=== PATIENT | female | born 1995 | race Caucasian/White ===

== ENCOUNTER 2016-12-21 15:21 | Emergency (ER) | payer OTHER ==
[~2016-12-21] VITALS: Ht 157.5 cm; Wt 45.4 kg
[~2016-12-21 15:21] MED LIST: CIPRO250 M1 PO; GOOD SENSE PAI650 MG PO; MACROBID100 MG PO; ZOFRAN4 M1 SL
[2016-12-21 15:30] VITALS: BP 123/76
[2016-12-21] MEDS ORDERED: CIPRODEX OTIC7.5 ML OT (16:24)
--- NOTE | 2016-12-21 16:25 | ED EAR COMPLAINT ---
History of Present Illness General Chief Complaint: Ear Complaints Stated Complaint: C/O R EAR PAIN Source: patient Exam Limitations: no limitations Vital Signs & Intake/Output Vital Signs & Intake/Output Vital Signs Date Time Temp Pulse Resp B/P B/P Pulse O2 O2 Flow FiO2 Mean Ox Delivery Rate 12/21 1530 98.9 97 16 123/76 95 Room Air Allergies Coded Allergies: ibuprofen (Intermediate, DUE TO HORSE SHOE KIDNEY 06/04/16) Reconcile Medications Ciprofloxacin HCl (Cipro) 250 MG TABLET 1 TAB PO BID uti Ciprofloxacin HCl/Dexameth (Ciprodex Otic Suspension) 0.3 %-0.1 % DROPS.SUSP 4 GTT OT BID ear infection Triage Note: TRIAGE: R EAR PAIN X2-3 DAYS, UNRELIEVED BY TYLENOL LAST TAKEN THIS AM 0900. AFEBRILE IN TRIAGE. Triage Nurses Notes Reviewed? yes Onset: Abrupt Duration: day(s):, constant, continues in ED Timing: recent history Severity: mild, moderate No Modifying Factors: none : No Patient currently breastfeeds: Yes HPI: 21-year-old female comes into emergency room with complaints of right ear pain. Pain is been going on for the past couple days. Sharp. Throbbing. Nonradiating. Denies any sore throat. Denies any cough or congestion. Patient was sick with some upper store symptoms last week but those symptoms have since resolved. Past History Travel History Traveled to [place] past 21 day No Medical History Any Pertinent Medical History? see below for history Neurological: NONE EENT: NONE Cardiovascular: NONE Respiratory: NONE Gastrointestinal: NONE Hepatic: NONE Renal: HORSESHOE KIDNEY Musculoskeletal: NONE Psychiatric: anxiety, depression Endocrine: NONE Blood Disorders: NONE Cancer(s): NONE Surgical History Surgical History: N Psychosocial History What is your primary language Wallisian Tobacco Use: Current Not Daily Family History Hx Contributory? No Review of Systems Review of Systems Constitutional: Reports: no symptoms. EENTM: Reports: see HPI. Respiratory: Reports: no symptoms. Cardiovascular: Reports: no symptoms. GI: Reports: no symptoms. Genitourinary: Reports: no symptoms. Musculoskeletal: Reports: no symptoms. Skin: Reports: no symptoms. Neurological/Psychological: Reports: no symptoms. Hematologic/Endocrine: Reports: no symptoms. Immunologic/Allergic: Reports: no symptoms. All Other Systems: Reviewed and Negative Physical Exam Physical Exam General Appearance: well developed/nourished, mild distress Head: atraumatic Eyes: Bilateral: normal appearance. Ears: Right: canal normal (erythema, inflamed). Nose: normal inspection Mouth/Throat: normal mouth inspection, pharynx normal Neck: normal inspection Cardiovascular/Respiratory: no respiratory distress Back: normal inspection Neurologic/Psych: awake, alert, oriented x 3, normal mood/affect Skin: intact, normal color, warm/dry Progress Differential Diagnoses I considered the following diagnoses in my evaluation of the patient: Otitis media, otitis externa, perforated TM, foreign body, Plan of Care: 12/21/2016 5:02:25 PM Patient clinically looks well. Nontoxic-appearing. In no apparent distress. Initial ED EKG: none Departure Departure Disposition: HOME OR SELF CARE Condition: Stable Clinical Impression Primary Impression: Otitis externa Referrals: UNKNOWN (PCP/Family) Additional Instructions: Uses Ciprodex drops as prescribed. Follow-up with your primary care doctor. Return if any concerns worsening symptoms. Please go over all results of today's visit with your primary care doctor. Contact your primary care doctor to let them know you were here in the emergency room. There may be nonspecific findings which may not be related to your visit today here in the emergency room but may require further evaluation and chronic monitoring by your primary care doctor. If you had a laceration today the chance of foreign body always remains. You should follow-up with your primary care doctor for recheck in 3-5 days for a wound check. If you had an x-ray done there is a chance that a fracture could have been missed on initial read and you should follow-up with your primary care doctor for repeat x-rays if symptoms persist. If your blood pressure was elevated here in the emergency room please have rechecked by her primary care doctor within the next 48 hours by your primary care doctor. If you were prescribed a narcotic here in the emergency room or any type of controlled substances you're not allowed to drive while taking this medication or operate any type of heavy machinery. Narcotics can make you feel lightheaded dizziness nausea and can cause constipation. You may need to pickle pumper a stool softener. Thank you for choosing emergency room. Please return to the emergency room immediately if you have any other concerns worsening of symptoms. Departure Forms: Customer Survey General Discharge Information Prescriptions: Current Visit Scripts Ciprofloxacin HCl/Dexameth (Ciprodex Otic Suspension) 4 GTT OT BID #1 BOT
== END 2016-12-21 16:45 ==
LOC: ERH 15:21
DX: H60.91 Unspecified otitis externa, right ear (principal)

== ENCOUNTER 2017-02-17 10:49 | Emergency (ER) | payer OTHER ==
[~2017-02-17] VITALS: Ht 157.5 cm; Wt 56.7 kg
[~2017-02-17 10:49] MED LIST changes: +CIPRODEX OTIC7.5 ML OT
--- NOTE | 2017-02-17 11:16 | ED GI/GU/ABDOMINAL COMPLAINT ---
History of Present Illness General Chief Complaint: Female Urogenital Problems Stated Complaint: 12 WEEKS , BLEEDING X 2DAYS Source: patient Exam Limitations: no limitations Vital Signs & Intake/Output Vital Signs & Intake/Output Vital Signs Date Time Temp Pulse Resp B/P B/P Pulse O2 O2 Flow FiO2 Mean Ox Delivery Rate 02/17 1244 76 20 110/60 98 Room Air 02/17 1055 98.6 91 18 126/85 98 Room Air Allergies Coded Allergies: ibuprofen (Intermediate, DUE TO HORSE SHOE KIDNEY 06/04/16) Reconcile Medications Ondansetron HCl (Zofran) 4 MG TABLET 1 TAB PO Q6-8P PRN NAUSEA Tylenol With Codeine (Tylenol With Codeine #3 Tablet) 300 MG-30 MG TABLET 1 TAB PO BIDP PRN PAIN Triage Note: 21 YO FEMALE TO ER. PT STAETS SHE WAS 12 WEEKS AND WENT FOR A ROUTINE ULTRASOUND ON SATURDAY AND THEY FOUND NO HEARTBEAT, STATES WAS SENT BACK FOR REPEAT ULTRSOUND ON SATURDAY AND STILL NO HEARTBEAT. PT STATES SHE IS PASSING CLOTS AND HAVING LOWER ABD PAIN. STATES "FEELS LIKE MY BACK IS KATHY" OB DR MOTA Triage Nurses Notes Reviewed? yes ? Y Is pt currently ? No Onset: Abrupt Duration: constant Quality/Severity: cramping, severe Severity Numbers: 7 HPI: Patient is a 21-year-old female who is a approximately 13 weeks and which patient's [employer] is Mikey Mota MD where patient states that she had a routine follow-up appointment on Saturday with Mikey Mota MD where she has had previous confirmed IUP ultrasounds where she states that she received a ultrasound where patient was asymptomatic however Mikey Mota MD notified patient following day on for concerns of no heart tones noted where she instructed the patient that she will most likely have a miscarriage and passing of vaginal tissue and blood. Patient states that yesterday she began mild vaginal bleeding and suprapubic abdominal cramping pain with mild back pain however the bleeding has worsened her patient now is passing multiple clots in the pain was so severe the patient was brought in by ambulance. Patient has mild nausea however no emesis has occurred. Patient can tolerate by mouth (LULU CARROLL,CLOTILDE) Past History Travel History Traveled to [place] past 21 day No Medical History Any Pertinent Medical History? see below for history Neurological: NONE EENT: NONE Cardiovascular: NONE Respiratory: NONE Gastrointestinal: NONE Hepatic: NONE Renal: HORSESHOE KIDNEY Musculoskeletal: NONE Psychiatric: anxiety, depression Endocrine: NONE Blood Disorders: NONE Cancer(s): NONE CLINICAL OB/Reproductive: ECTOPIC Surgical History Surgical History: none, N Psychosocial History What is your primary language Hungarian Tobacco Use: Current Daily Use Daily Tobacco Use Amount/Type: =< 4 Cigarettes daily Family History Hx Contributory? No (CLOTILDE BAXTER) Review of Systems Review of Systems Constitutional: Reports: no symptoms. EENTM: Reports: no symptoms. Respiratory: Reports: no symptoms. Cardiovascular: Reports: no symptoms. GI: Reports: see HPI, abdominal pain. Genitourinary: Reports: see HPI. Musculoskeletal: Reports: see HPI, back pain. Skin: Reports: no symptoms. Neurological/Psychological: Reports: no symptoms. Hematologic/Endocrine: Reports: no symptoms. Immunologic/Allergic: Reports: no symptoms. All Other Systems: Reviewed and Negative (CLOTILDE BAXTER) Physical Exam Physical Exam General Appearance: anxious, mild distress Gastrointestinal: normal bowel sounds, soft Comments: HEENT: Normal EENT exam, Neck: Supple, no lymphadenopathy, normal range of motion without pain or tenderness Back: Normal inspection, bilateral paralumbar muscular point tenderness Cardiovascular: Regular rate and rhythms no murmurs rubs or gallops, normal JVP Respiratory: Chest nontender. No respiratory distress.breath sounds clear to auscultation bilaterally Abdomen: Soft, mild suprapubic point tenderness: Alert oriented x3, motor sensory normal, - mild active vaginal bleeding noted cervix nontender and 1 cm dilation noted Skin: No appreciable rash on exposed skin, skin is warm and dry. Psych: Mood and affect is normal, memory and judgment is normal. Core Measures ACS in differential dx? No Severe Sepsis Present: No Septic Shock Present: No (CLOTILDE BAXTER) Progress Differential Diagnosis: appendicitis, biliary colic, cholecystitis, diverticulitis, endometritis, esophageal varices, gastritis, hepatitis, hernia, hemorrhoids, ischemic bowel, inflamm bowel dis, intrauterine , kidney stone, ovarian cyst, ovarian torsion, pancreatitis, PID/cervicitis, peptic ulcer , PUD/GERD, perforated viscous, SBO, threatened AB, UTI/pyelo Plan of Care: Orders Procedure Date/time Status URINALYSIS 02/17 111 Active PARTIAL THROMBOPLASTIN TIME 02/17 111 Complete PROTHROMBIN TIME 02/17 111 Complete HUMAN BETA HCG TITRE 02/17 1110 Complete COMPREHENSIVE METABOLIC PANEL 02/17 111 Complete CBC WITHOUT DIFFERENTIAL 02/17 1110 Complete TYPE & SCREEN (NOT X-MATCH) 02/17 111 Complete Laboratory Tests 02/17/17 1120: Anion Gap 12, Estimated GFR > 60, BUN/Creatinine Ratio 6.3 L, Glucose 80, Calcium 10.0, Total Bilirubin 0.7, AST 17, ALT 20, Alkaline Phosphatase 62, Total Protein 7.4, Albumin 4.7, Globulin 2.7, Albumin/Globulin Ratio 1.7, Beta HCG, Quant 1921.1, PT 12.5, INR 1.19, APTT 32, CBC w Diff NO MAN DIFF REQ, RBC 4.60, MCV 91.0, MCH 30.0, RDW 16.7 H, MPV 7.8, Gran % 73.2, Lymphocytes % 17.4 L, Monocytes % 7.2, Eosinophils % 1.9, Basophils % 0.3, Absolute Granulocytes 8.5 H, Absolute Lymphocytes 2.0, Absolute Monocytes 0.8 H, Absolute Eosinophils 0.2, Absolute Basophils 0, PUBS MCHC 32.9 L Patient was hemodynamically stable normotensive Discussed ultrasound results with patient for concerns of miscarriage. I discussed patient ultrasound findings blood work with [employer] Mikey Mota MD who advised patient to follow-up first thing tomorrow morning for further evaluation treatment. Ultrasound findings were suspicious that patient has most likely completed her miscarriage in which no significant retained products was noted patient had dried blood around the labia with no profuse active bleeding upon discharge Upon discharge patient looks well no apparent distress was able tolerate by mouth Discussed disposition plan with DR. PINO WHO AGREES patient had no questions on discharge (LULU CARROLL,CLOTILDE) Diagnostic Imaging: Viewed by Me: Ultrasound. Radiology Impression: SEE COMMENTS Initial ED EKG: none Comments: PATIENT: SOCO MELCHOR PRESENT AGE: 21 PATIENT ACCOUNT NO: [id number] : 96 LOCATION: [facility] ORDERING PHYSICIAN: CLOTILDE CARRLOL SERVICE DATE: 02/17/17-1109 EXAM TYPE: US - US- VIABILITY EXAMINATION: US , VIABILITY CLINICAL INFORMATION: Approximately 12 weeks . Heavy bleeding. History of recent miscarriage. COMPARISON: None TECHNIQUE: Transabdominal and transvaginal OB ultrasound. Transvaginal exam was stopped as the patient could not tolerate the exam. FINDINGS: The uterus measures 11 x 5.5 x 5.4 cm in dimension. No intrauterine is seen. The endometrium is thickened measure between 1.3 and 1.9 cm. Cervical length is 3.4 cm. The ovaries are not seen. There is no fluid in the pelvis. IMPRESSION: Limited exam. No intrauterine seen. Thickened endometrium. Ovaries not seen. DICTATED BY: JEFFERY LUCIANO MD DATE/TIME DICTATED:02/17/171154 OUTSIDE PROPERTY AGENT:HENRIETTA (CLOTILDE BAXTER) Departure Departure Disposition: HOME OR SELF CARE Condition: Stable Clinical Impression Primary Impression: Incomplete miscarriage Referrals: PATIENT HAS NO PRIMARY CARE DR (PCP/Family) Additional Instructions: As discussed begin the prescription of Tylenol with Codeine for pain. Begin the prescription of Zofran for nausea. First thing tomorrow follow up with YOUR established [employer] Mikey Mota MD If symptoms worsen return to emergency room. Prescriptions are waiting at [facility] Departure Forms: Customer Survey General Discharge Information Prescriptions: Current Visit Scripts Tylenol With Codeine (Tylenol With Codeine #3 Tablet) 1 TAB PO BIDP PRN PAIN #8 TAB Ondansetron HCl (Zofran) 1 TAB PO Q6-8P PRN NAUSEA #8 TAB (CLOTILDE BAXTER) PA/IN HOME AIDE Co-Sign Statement Statement: ED Attending supervision documentation- [X] I saw and evaluated the patient. I have also reviewed all the pertinent lab results and diagnostic results. I agree with the findings and the plan of care as documented in the PA's/IN HOME AIDE's documentation. [] I have reviewed the ED Record and agree with the PA's/IN HOME AIDE's documentation. [] Additions or exceptions (if any) to the PAs/IN HOME AIDE's note and plan are summarized below: [] (CLYDE PINO DO)
[2017-02-17 11:39] LABS: ABSOLUTE BASOPHIL COUNT 0 /CUMM (0.0-0.2); ABSOLUTE EOSINOPHIL COUNT 0.2 /CUMM (0.0-0.7); ABSOLUTE GRANULOCYTE CT 8.5 /CUMM (1.4-6.5); ABSOLUTE MONOCYTE COUNT 0.8 /CUMM (0.10-0.60); BASOPHIL % 0.3 % (0.0-2.0); EOSINOPHIL % 1.9 % (0-5); GRANULOCYTE % 73.2 % (42.2-75.2); HEMATOCRIT 41.9 % (37-47); MEAN CORPUSCULAR HGB CONC 32.9 G/DL (33.0-37.0); MEAN PLATELET VOLUME 7.8 FL (7.4-10.4); PLATELET COUNT 336 /CUMM (130-400); RBC DISTRIBUTION WIDTH 16.7 % (11.5-14.5); WHITE BLOOD CELL COUNT 11.6 /CUMM (4.8-10.8)
[2017-02-17 11:49] LABS: PT 12.5 SEC (9.4-12.5); PTT 32 SEC (25-37)
--- NOTE | 2017-02-17 12:07 | ULTRASOUND REPORT ---
EXAMINATION: US , VIABILITY CLINICAL INFORMATION: Approximately 12 weeks . Heavy bleeding. History of recent miscarriage. COMPARISON: None TECHNIQUE: Transabdominal and transvaginal OB ultrasound. Transvaginal exam was stopped as the patient could not tolerate the exam. FINDINGS: The uterus measures 11 x 5.5 x 5.4 cm in dimension. No intrauterine is seen. The endometrium is thickened measure between 1.3 and 1.9 cm. Cervical length is 3.4 cm. The ovaries are not seen. There is no fluid in the pelvis. IMPRESSION: Limited exam. No intrauterine seen. Thickened endometrium. Ovaries not seen.
[2017-02-17] MEDS ORDERED: ZOFRAN4 M2 PO (12:30)
[2017-02-17] MEDS ORDERED: TYLENOL WITH C1 EACH PO (12:30)
[2017-02-17 12:44] VITALS: BP 110/60
== END 2017-02-17 12:48 ==
LOC: ERH 10:49
PROVIDERS: Physician Assistant
DX: O02.1 Missed abortion (principal)
CPT/HCPCS: J3101

== ENCOUNTER 2017-12-18 21:29 | Emergency (ER) | payer OTHER ==
[~2017-12-18] VITALS: Ht 157.5 cm; Wt 46.3 kg
[~2017-12-18 21:29] MED LIST changes: +TYLENOL WITH C1 EACH PO; +ZOFRAN4 M2 PO
--- NOTE | 2017-12-18 21:55 | ED GI/GU/ABDOMINAL COMPLAINT ---
History of Present Illness General Chief Complaint: Female Urogenital Problems Stated Complaint: ?OVARIAN CYSTS Source: patient Exam Limitations: no limitations Vital Signs & Intake/Output Vital Signs & Intake/Output Vital Signs Date Time Temp Pulse Resp B/P B/P Pulse O2 O2 Flow FiO2 Mean Ox Delivery Rate 12/18 2133 98.0 79 16 131/87 98 Room Air Room Air ED Intake and Output 12/19 0000 12/18 1200 Intake Total 1000 Output Total 300 Balance 700 Intake, IV 1000 Output, Urine 300 Patient 102 lb Weight Weight Estimated Measurement Method Allergies Coded Allergies: NSAIDS (Non-Steroidal Anti-Inflamma ("HORSE SHOE KIDNEY" 12/18/17) Reconcile Medications Ciprofloxacin HCl (Cipro) 500 MG TABLET 1 TAB PO BID pyelo Ondansetron HCl (Zofran) 4 MG TABLET 1 TAB PO Q6-8P PRN NAUSEA Oxycodone HCl/Acetaminophen (Percocet 5-325 MG Tablet) 5 MG-325 MG TABLET 1 TAB PO BID PRN pain Tylenol With Codeine (Tylenol With Codeine #3 Tablet) 300 MG-30 MG TABLET 1 TAB PO BIDP PRN PAIN Triage Note: PT TO TRIAGE FOR LLQ PAIN FOR 2 DAYS. PT SAW HER OBGYN FOR PAP SMEAR AND WAS CALLED BACK STATING SHE EITHER HAD CERVICA CA OR OVARIAN CYSTS. SOON AFTER BEING NOTIFIED SHE HAD PAIN. DENIES FEVERS, DENIES VAGINAL BLEEDING. HX OF ECTOPIC, DENIES CURRENT Triage Nurses Notes Reviewed? yes ? N Is pt currently ? No Onset: Gradual Duration: day(s): Timing: recent history Quality/Severity: moderate Severity Numbers: 8 Location: left lower quadrant HPI: 22YO female presents to ED complaining of left lower quadrant abdominal pain for the past 2 days. Abdominal pain described as sharp, 8/10, radiating to generalized abdomen. Patient also reports dysuria beginning today. Patient states that she has a history of previous UTI within the past month and history of pyelonephritis in the past as well. The patient recently saw her TELEGRAPH INSPECTOR and had a Pap smear which was concerning for possible "cancer or ovarian cysts". She is still under work up with her TELEGRAPH INSPECTOR for this. Patient denies fevers, chills, changes in vaginal discharge, vomiting, diarrhea, constipation. (Sandra CARROLL,Bri Santillan) Past History Travel History Traveled to [place] past 21 day No Medical History Any Pertinent Medical History? see below for history Neurological: NONE EENT: NONE Cardiovascular: NONE Respiratory: NONE Gastrointestinal: NONE Hepatic: NONE Renal: HORSESHOE KIDNEY Musculoskeletal: NONE Psychiatric: anxiety, depression Endocrine: NONE Blood Disorders: NONE Cancer(s): NONE DIALYSIS TECHNICIAN/Reproductive: ECTOPIC Surgical History Surgical History: none, N Psychosocial History What is your primary language Iranian Tobacco Use: Current Daily Use Daily Tobacco Use Amount/Type: => 5 Cigarettes daily ETOH Use: occasional use Illicit Drug Use: denies illicit drug use Family History Hx Contributory? No (Bri De La Cruz) Review of Systems Review of Systems Constitutional: Reports: no symptoms. EENTM: Reports: no symptoms. Respiratory: Reports: no symptoms. Cardiovascular: Reports: no symptoms. GI: Reports: see HPI. Genitourinary: Reports: see HPI. Musculoskeletal: Reports: no symptoms. Skin: Reports: no symptoms. Neurological/Psychological: Reports: no symptoms. Hematologic/Endocrine: Reports: no symptoms. Immunologic/Allergic: Reports: no symptoms. All Other Systems: Reviewed and Negative (Bri De La Cruz) Physical Exam Physical Exam General Appearance: well developed/nourished, no apparent distress, alert, awake Head: atraumatic, normal appearance Eyes: Bilateral: normal appearance. Ears, Nose, Throat, Mouth: hearing grossly normal Neck: normal inspection, supple, full range of motion Respiratory: normal breath sounds, no respiratory distress, lungs clear Cardiovascular: regular rate/rhythm Gastrointestinal: normal bowel sounds, soft, no organomegaly, LLQ tenderness, - Rosving's sign Back: normal inspection, normal range of motion, no CVA tenderness Extremities: normal range of motion Neurologic/Psych: awake, alert, oriented x 3 Skin: intact, normal color, warm/dry Core Measures ACS in differential dx? No Sepsis Present: No Sepsis Focused Exam Completed? No (Bri De La Cruz) Progress Differential Diagnosis: appendicitis, bowel obstruction, colon cancer, diverticulitis, ectopic , hernia, inflamm bowel dis, intrauterine , kidney stone, ovarian cyst, SBO, UTI/pyelo Plan of Care: Orders Procedure Date/time Status Add-on Test (ER Only) 12/19 0024 Active CULTURE,URINE 12/18 2214 Active URINE 12/18 2153 Complete URINALYSIS 12/18 2153 Complete LIPASE 12/18 2153 Complete COMPREHENSIVE METABOLIC PANEL 12/18 2153 Complete CBC WITHOUT DIFFERENTIAL 12/18 2153 Complete Current Medications Sig/Nohelia Start time Last Medication Dose Stop Time Status Admin Ceftriaxone Sodium 1,000 MG ONCE ONE 12/19 29 UNVr 12/19 (Rocephin) 12/19 30 0035 Laboratory Tests 12/18/172214: Urine Color YEL, Urine Clarity HAZY H, Urine pH 6.5, Ur Specific [place] 1.010, Urine Protein NEG, Urine Ketones NEG, Urine Nitrite NEG, Urine Bilirubin NEG, Urine Urobilinogen 0.2, Ur Leukocyte Esterase MOD H, Ur Microscopic SEDIMENT EXAMINED, Urine RBC RARE, Urine WBC 25-50 H, Ur Epithelial Cells MOD H, Urine Bacteria MOD H, Urine Mucus RARE, Urine Hemoglobin TRACE-INTACT, Urine Glucose NEG, Urine Test NEGATIVE 12/18/172204: Anion Gap 10, Estimated GFR > 60, BUN/Creatinine Ratio 13.8, Glucose 85, Calcium 9.1, Total Bilirubin 0.4, AST 15, ALT 18, Alkaline Phosphatase 67, Total Protein 6.4, Albumin 3.8, Globulin 2.6, Albumin/Globulin Ratio 1.5, Lipase 83, CBC w Diff NO MAN DIFF REQ, RBC 4.37, MCV 90.8, MCH 30.6, MCHC 33.7, RDW 15.0 H, MPV 8.1, Gran % 76.5 H, Lymphocytes % 16.9 L, Monocytes % 6.3, Eosinophils % 0, Basophils % 0.3, Absolute Granulocytes 13.1 H, Absolute Lymphocytes 2.9, Absolute Monocytes 1.1 H, Absolute Eosinophils 0, Absolute Basophils 0.1 Microbiology 12/18 2214 URINE ROUT: Urine Culture - RECD Patient's CT scan findings combined with her blood work and urinalysis show signs of likely pyelonephritis. She didn't has evidence of infection on her urine as well as leukocytosis. Patient reports improvement in pain following IV pain medication. Patient was given a dose of IV antibiotics here in the emergency department. She was started on Cipro antibiotics for urinary infection. Patient was given strict return precautions, she does feel comfortable going home. The patient is nontoxic appearing, vital signs are stable. She will return if symptoms are worsening. Patient understands and agrees with the plan of care. The patient was discussed with Dr. Vargas who agrees with the plan of care. Diagnostic Imaging: Viewed by Me: CT Scan. Discussed w/RAD: CT Scan. Radiology Impression: PATIENT: SOCO MELCHOR PRESENT AGE: 22 PATIENT ACCOUNT NO: [id number] : 96 LOCATION: [facility] ORDERING PHYSICIAN: Bri CARROLL SERVICE DATE: 12/18/17 EXAM TYPE: CAT - CT ABD & PELVIS W IV CONTRAST EXAMINATION: CT ABDOMEN AND PELVIS WITH CONTRAST CLINICAL INFORMATION: Generalized abdominal pain, diarrhea COMPARISON: 02/28/2015 TECHNIQUE: Multidetector volumetric imaging was performed of the abdomen and pelvis following IV administration of 95 mL of Optiray 320 intravenous contrast. Sagittal and coronal reformatted images were obtained on the technologist's workstation. DLP: 247.97 mGy-cm FINDINGS: LUNG BASES: The visualized lung bases are unremarkable. LIVER, GALLBLADDER, AND BILIARY TREE: The liver is normal in size, shape, and attenuation. Periportal edema is noted, which may reflect systemic hypervolemia, as there is also distention of the IVC. No focal hepatic lesion or biliary ductal dilatation is present. The gallbladder is grossly unremarkable. PANCREAS: Unremarkable. SPLEEN: Unremarkable. ADRENAL GLANDS: Unremarkable. KIDNEYS AND URETERS: Redemonstrated horseshoe kidney configuration with a larger right kidney and smaller left kidney. No definite parenchymal evidence for pyelonephritis, though the configuration of the kidney partially limits evaluation. No appreciable perinephric stranding. There is mild asymmetric fullness of the right renal pelvis. There is also mural enhancement of the right renal pelvis and ureter, which may reflect sequelae of inflammation. No obstructing calculi seen bilaterally. BLADDER: Unremarkable. GASTROINTESTINAL TRACT: The small and large bowel are unremarkable without evidence for obstruction or wall thickening. The appendix appears nondilated. ABDOMINAL WALL: No significant hernia is appreciated. LYMPH NODES: No appreciable lymphadenopathy. VASCULAR: Unremarkable. PELVIC VISCERA: Unremarkable. OSSEOUS STRUCTURES: Unremarkable. IMPRESSION: 1. Mild asymmetric fullness of the right renal pelvis, with mural enhancement of the pelvis and ureter, which could reflect sequelae of infection. Correlation with urinalysis is advised. Horseshoe kidney configuration without definite evidence of pyelonephritis. 2. Periportal edema in the liver, which may be due to systemic hypervolemia. In the proper clinical setting, acute hepatitis could also result in this appearance. 3. No acute bowel abnormality. DICTATED BY: Oscar Rivera MD DATE/TIME DICTATED:12/18/172324 MEDICAL REVIEWER:HENRIETTA DATE/TIME TRANSCRIBED:12/18/172324 CONFIDENTIAL, DO NOT COPY WITHOUT APPROPRIATE AUTHORIZATION. <Electronically signed in Other Vendor System> SIGNED BY: Oscar Rivera MD 12/18/17 9952 Initial ED EKG: none (Bri De La Cruz) Departure Departure Disposition: HOME OR SELF CARE Condition: Stable Clinical Impression Primary Impression: Pyelonephritis Referrals: Patient Has No Primary Care Dr Additional Instructions: Take full course of antibiotics. Take Percocet as prescribed as needed for pain. Return with any worsening symptoms or concerns such as increasing pain, fevers despite use of Tylenol. Please note that there might be incidental findings in your evaluation that are unrelated to the current emergency department visit. Please notify your primary care doctor about this emergency department visit in order to obtain and review all of the testing performed so that these incidental findings can be monitored as needed. If you had an x-ray performed, please understand that some fractures may not be seen on the initial set of x-rays. If your symptoms persist you might need a repeat set of x-rays to check for such a fracture. If you had a laceration evaluated, please understand that foreign bodies such as glass or wood may not be visible to the naked eye or on plain x-rays. If the wound becomes red, swollen, increasingly more painful or if there is any drainage from the wound, please have it reevaluated by a physician for the possibility of a retained foreign body. If you're unable to follow up as outlined in the discharge instructions please return to the emergency department. Thank you for choosing the [facility] for your care. It was a pleasure to serve you today. Departure Forms: Customer Survey General Discharge Information Prescriptions: Current Visit Scripts Ciprofloxacin HCl (Cipro) 1 TAB PO BID #20 TAB Oxycodone HCl/Acetaminophen (Percocet 5-325 MG Tablet) 1 TAB PO BID PRN pain #10 TAB (Bri De La Cruz) PA/AUTOMOBILE MECHANIC APPRENTICE Co-Sign Statement Statement: ED Attending supervision documentation- [] I saw and evaluated the patient. I have also reviewed all the pertinent lab results and diagnostic results. I agree with the findings and the plan of care as documented in the PA's/AUTOMOBILE MECHANIC APPRENTICE's documentation. [x] I have reviewed the ED Record and agree with the PA's/AUTOMOBILE MECHANIC APPRENTICE's documentation. [] Additions or exceptions (if any) to the PAs/AUTOMOBILE MECHANIC APPRENTICE's note and plan are summarized below: [] (Archie Saavedra DO) PA/AUTOMOBILE MECHANIC APPRENTICE Co-Sign Statement Statement: ED Attending supervision documentation- X I saw and evaluated the patient. I have also reviewed all the pertinent lab results and diagnostic results. I agree with the findings and the plan of care as documented in the PA's/AUTOMOBILE MECHANIC APPRENTICE's documentation. [] I have reviewed the ED Record and agree with the PA's/AUTOMOBILE MECHANIC APPRENTICE's documentation. [] Additions or exceptions (if any) to the PAs/AUTOMOBILE MECHANIC APPRENTICE's note and plan are summarized below: [] (Alicia WALTERS,Ramiro)
[2017-12-18 22:37] LABS: ABSOLUTE BASOPHIL COUNT 0.1 /CUMM (0.0-0.2); ABSOLUTE EOSINOPHIL COUNT 0 /CUMM (0.0-0.7); ABSOLUTE GRANULOCYTE CT 13.1 /CUMM (1.4-6.5); ABSOLUTE LYMPH COUNT 2.9 /CUMM (1.2-3.4); ABSOLUTE MONOCYTE COUNT 1.1 /CUMM (0.10-0.60); BASOPHIL % 0.3 % (0.0-2.0); EOSINOPHIL % 0 % (0-5); GRANULOCYTE % 76.5 % (42.2-75.2); HEMATOCRIT 39.7 % (37-47); MEAN CORPUSCULAR HGB 30.6 PG (27.0-31.0); MEAN CORPUSCULAR HGB CONC 33.7 G/DL (33.0-37.0); MEAN CORPUSCULAR VOLUME 90.8 FL (81.0-99.0); MEAN PLATELET VOLUME 8.1 FL (7.4-10.4); PLATELET COUNT 414 /CUMM (130-400); RED BLOOD CELL CT 4.37 /CUMM (4.20-5.40)
[2017-12-18 22:54] LABS: WHITE BLOOD CELL COUNT 17.1 /CUMM (4.8-10.8)
--- NOTE | 2017-12-18 23:44 | CT SCAN REPORT ---
EXAMINATION: CT ABDOMEN AND PELVIS WITH CONTRAST CLINICAL INFORMATION: Generalized abdominal pain, diarrhea COMPARISON: 02/28/2015 TECHNIQUE: Multidetector volumetric imaging was performed of the abdomen and pelvis following IV administration of 95 mL of Optiray 320 intravenous contrast. Sagittal and coronal reformatted images were obtained on the technologist's workstation. DLP: 247.97 mGy-cm FINDINGS: LUNG BASES: The visualized lung bases are unremarkable. LIVER, GALLBLADDER, AND BILIARY TREE: The liver is normal in size, shape, and attenuation. Periportal edema is noted, which may reflect systemic hypervolemia, as there is also distention of the IVC. No focal hepatic lesion or biliary ductal dilatation is present. The gallbladder is grossly unremarkable. PANCREAS: Unremarkable. SPLEEN: Unremarkable. ADRENAL GLANDS: Unremarkable. KIDNEYS AND URETERS: Redemonstrated horseshoe kidney configuration with a larger right kidney and smaller left kidney. No definite parenchymal evidence for pyelonephritis, though the configuration of the kidney partially limits evaluation. No appreciable perinephric stranding. There is mild asymmetric fullness of the right renal pelvis. There is also mural enhancement of the right renal pelvis and ureter, which may reflect sequelae of inflammation. No obstructing calculi seen bilaterally. BLADDER: Unremarkable. GASTROINTESTINAL TRACT: The small and large bowel are unremarkable without evidence for obstruction or wall thickening. The appendix appears nondilated. ABDOMINAL WALL: No significant hernia is appreciated. LYMPH NODES: No appreciable lymphadenopathy. VASCULAR: Unremarkable. PELVIC VISCERA: Unremarkable. OSSEOUS STRUCTURES: Unremarkable. IMPRESSION: 1. Mild asymmetric fullness of the right renal pelvis, with mural enhancement of the pelvis and ureter, which could reflect sequelae of infection. Correlation with urinalysis is advised. Horseshoe kidney configuration without definite evidence of pyelonephritis. 2. Periportal edema in the liver, which may be due to systemic hypervolemia. In the proper clinical setting, acute hepatitis could also result in this appearance. 3. No acute bowel abnormality.
[2017-12-19] MEDS ORDERED: CIPRO500 M1 PO (00:40)
[2017-12-19] MEDS ORDERED: PERCOCET 5-3251 EACH PO (00:40)
[2017-12-19 00:42] VITALS: BP 133/75
== END 2017-12-19 00:54 ==
LOC: ERH 21:29
PROVIDERS: Physician Assistant
DX: N12 Tubulo-interstitial nephritis, not specified as acute or chronic (principal)
CPT/HCPCS: 74177; 81001; 81025; 87086; 96361; 96374; 96375; 96376; J0696